=== PATIENT | male | born 1960 | race Caucasian/White ===

== ENCOUNTER 2019-03-11 11:23 | Inpatient (IN) | payer MEDICARE, OTHER ==
[~2019-03-11] VITALS: Ht 162.6 cm; Wt 200.0 kg
[2019-03-11] MEDS ORDERED: CEFEPIME 2GM/50 ML (PMX) 50 ML IVPB STA (11:34)
[2019-03-11] MEDS ORDERED: IPRATROPIUM (NEB) 0.5 MG/2.5 ML AMP INH STA (11:34)
[2019-03-11] MEDS ORDERED: ALBUTEROL 0.5% (NEB) 2.5 MG/0.5 ML AMP INH STA (11:34)
[2019-03-11] MEDS ORDERED: VANCOMYCIN 1 GM (PMX) 250 ML IVPB ONE (12:00)
[2019-03-11] MEDS ORDERED: FUROSEMIDE 40 MG INJ IV ONE (13:00)
--- NOTE | 2019-03-11 13:06 | ERD ---
ER Documentation Chief Complaint Chief Complaint MACKENZIE FROM [facility] D/T LOW SPO2 HPI This is a 58-year-old male that presents to the emergency department brought in by EMS from [facility]. The patient is a DO NOT RESUSCITATE with comfort measures only. The patient's pulse oximetry was low just prior to arrival and therefore 911 was called. When EMS arrived they stated that the patient appeared to be in severe respiratory distress and was desaturating to roughly 85%. They placed the patient on a nonrebreather with improvement of his saturation to 99%. The patient presents with a pulsed form that indicates comfort focused treatment which includes oxygen and suctioning and manual treatment of airway obstruction with no intubation. The patient has a history of chronic obstructive pulmonary disease rheumatoid arthritis and morbid obesity. It is unknown if the patient had any recent hospitalizations. He is also an insulin-dependent diabetic. No further history is available at this time. ROS All systems reviewed and are negative except as per history of present illness. Physical Exam Vitals Vital Signs Date Temp Pulse Resp B/P (MAP) Pulse Ox O2 O2 Flow FiO2 Time Delivery Rate 03/11/19 98 98 35 11:56 03/11/19 99.1 97 26 147/89 97 11:32 (108) Physical Exam Constitutional:Well-developed. Patient was in severe respiratory distress. HEENT:Normocephalic. Atraumatic.Pupils were 3 mm equal round reactive to light. Moist mucous membranes.No tonsillar exudates. Neck: No nuchal rigidity. No lymphadenopathy. No posterior cervical spine tenderness or step-offs. Respiratory: Patient using accessory muscles of respiration. Decreased breath sounds in the left lower lung base. Wheezing bilaterally. Cardiovascular: Regular rate regular rhythm.No murmurs. No rubs were appreciated.S1, S2 normal. Distal pulses are palpable 2+ bilaterally. GI: Abdomen was obese so exam was limited due to body habitus. Nontender. Non Distended. No pulsatile abdominal masses or bruits. No rebound. No guarding. Bowel sounds were present and normal. Muscle skeletal: Patient does not move bilateral lower extremities against gravity. Does not follow verbal commands of muscular testing was unable to be obtained. Skin: No petechia, no purpura. No lesions on the palms or the soles of the feet. No maculopapular rash. NEURO: Patient with open eyes in response to pain. Mumbled and calm principal sounds . gait not observed. Patient did not follow verbal command. Result Diagram: 03/11/19 1148 Results 24 hrs Laboratory Tests Test 03/11/19 11:34 03/11/19 11:47 03/11/19 11:48 03/11/19 11:57 Blood Gas Blood arterial Specimen Source Arterial Blood 03/11/2019 11:38:50 Date Drawn AM Arterial Blood pH 7.187 (Temp corrected) Arterial Blood 87.8 mmhg pCO2 (Temp correct) Arterial Blood 128.0 mmHG pO2 (Temp corrected) Arterial Blood 32.6 mmol/L HCO3 Arterial Blood 1.5 mmol/L Base Excess Arterial Blood 98.2 mmHG Oxygen Saturation Lambert Test ACCEPTAB Arterial Blood Right Radial Gas Puncture Site Arterial 1.6 % Blood Carboxyhemo globin Arterial Blood 0.2 % Methemoglobin Blood Gas A-a O2 357.6 mmHg Differential Oxyhemoglobin 96.4 % Percent Blood Gas 37.0 C Temperature Blood Gas MASK - SIMPLE Modality FiO2 81.0 % Blood Gas DR. SALGADO Critical Value Read Back Blood Gas C.M. Notified Whom Blood Gas 03/11/2019 11:49:44 Notified Time AM Prothrombin Time 13.2 Sec Prothrombin Time 1.0 Ratio INR International 0.99 Normalized Ratio Activated 26.9 Sec Partial Thrombopl ast Time White Blood Count 10.6 10^3/ul Red Blood Count 4.36 10^6/ul Hemoglobin 12.3 g/dl Hematocrit 44.1 % Mean Corpuscular 101.1 fl Volume Mean Corpuscular 28.2 pg Hemoglobin Mean Corpuscular 27.9 g/dl Hemoglobin Concen t Red Cell 17.8 % Distribution Width Platelet Count 167 10^3/UL Mean Platelet 12.1 fl Volume Immature 1.900 % Granulocytes % Neutrophils % 83.0 % Lymphocytes % 7.4 % Monocytes % 6.7 % Eosinophils % 0.4 % Basophils % 0.6 % Nucleated Red 0.2 /100WBC Blood Cells % Immature 0.200 10^3/ul Granulocytes # Neutrophils # 8.8 10^3/ul Lymphocytes # 0.8 10^3/ul Monocytes # 0.7 10^3/ul Eosinophils # 0.0 10^3/ul Basophils # 0.1 10^3/ul Nucleated Red 0.0 10^3/ul Blood Cells # POC Venous 1.4 mmol/L Lactate Current Medications Medications Dose Sig/Karyn Start Time Status Last (Trade) Ordered Route PRN Stop Time Admin Dose Reason Admin Cefepime HCl 50 ml @ ONCE STAT 03/11/19 DC 03/11/19 100 mls/hr IVPB 11:34 03/11/19 12:11 12:03 Vancomycin 250 ml @ ONCE ONCE 03/11/19 HCl 125 mls/hr IVPB 12:00 03/11/19 13:59 Albuterol 10 mg ONCE STAT 03/11/19 DC 03/11/19 (Proventil INH 11:34 03/11/19 12:24 0.5% (Neb)) 11:37 Ipratropium 1 mg ONCE STAT 03/11/19 DC 03/11/19 [place] INH 11:34 03/11/19 12:24 (Atrovent 11:37 0.02% (Neb)) Procedures/MDM The patient presented to the emergency department with dyspnea. My differential diagnosis included but was not limited to upper airway obstruction, CHF, pulmonary embolism, cardiac ischemia, pneumonia, pneumothorax, anemia, drug overdose, pulmonary edema, COPD or asthma. The patient was in severe respiratory distress. Arterial blood gas was immediately obtained and the patient had CO2 narcosis with respiratory acidosis. pH was 7.187. PCO2 was 87.8. The patient is comfort measures only but at this time he was placed on noninvasive mechanical ventilation. He also met Sirs criteria however lactic acid was within normal limits. Chest radiograph was ordered and reviewed by myself and the radiologist and indicate the following: Markedly low lung volumes with excessive rotation to the left, decreasing diagnostic quality. Extensive interstitial opacities bilaterally with greater confluence in the basilar lungs. Findings can be secondary to severe pulmonary edema or airway inf lammation. Retrocardiac opacity and blunting of the left costophrenic angle, consistent with a combination of left pleural effusion and atelectasis / consolidation. Blood cultures and urine cultures were obtained. The patient was started on vancomycin and cefepime as initially was treated for suspected unclear etiology possible sepsis. Again however the lactic acid was normal the patient was not septic. 12 Lead EKG tracing ordered and reviewed by myself showed: Normal sinus rhythm of 73 bpm and no arrhythmia. PVCs. CT interval normal. QRS duration normal. No ST segment elevation No ST segment depression. No changes consistent with acute ischemia. The patient's potassium was elevated 6.5. He received an amp of bicarb calcium card and also had received albuterol. The patient was also given Lasix. Also administer 125 mg of Solu-Medrol for suspected overlying COPD exacerbation. He will be admitted to the hospitalist. Given that the patient is comfort measures only he will be going to the telemetry service. Critical Care: Time: 75 minutes Treatments/Evaluations: Close monitoring and treatment of unstable vital signs, cardiorespiratory, and neurologic status, while maintaining tight balance of fluid, respiratory, and cardiac interventions. Time does not include performing any of the above billable procedures. Departure Diagnosis: Primary Impression: COPD (chronic obstructive pulmonary disease) COPD type: chronic bronchitis Chronic bronchitis type: mucopurulent Qualified Codes: J41.1 - Mucopurulent chronic bronchitis Additional Impressions: CO2 narcosis Respiratory distress Condition: Serious JOCELYN SALGADO MD Mar 11, 2019 12:50
[2019-03-11] MEDS ORDERED: DOCU-144 PO (13:21)
[2019-03-11] MEDS ORDERED: ACET-141 PO (13:21)
[2019-03-11] MEDS ORDERED: GABA300C16 PO (13:22)
[2019-03-11] MEDS ORDERED: LACTINEX PO (13:22)
[2019-03-11] MEDS ORDERED: LANT3I SC (13:26)
[2019-03-11] MEDS ORDERED: FURO20TA3 PO (13:26)
[2019-03-11] MEDS ORDERED: MECL-77 PO (13:26)
[2019-03-11] MEDS ORDERED: METF100010 PO (13:27)
[2019-03-11] MEDS ORDERED: HYDR-4012 PO (13:28)
[2019-03-11] MEDS ORDERED: NYST15CR28 TOP ×2 (13:30→13:43)
[2019-03-11] MEDS ORDERED: ONDANSETRON 4 MG INJ IV PRN (13:30)
[2019-03-11] MEDS ORDERED: ACETAMINOPHEN 325 MG TAB PO PRN (13:30)
[2019-03-11] MEDS ORDERED: METHYLPREDNISOLONE 125 MG INJ IV ONE (13:30)
[2019-03-11] MEDS ORDERED: INSU500I SQ (13:34)
[2019-03-11] MEDS ORDERED: BALS60OI TOP ×2 (13:38→13:39)
[2019-03-11] MEDS ORDERED: DULA1.5P SQ (13:39)
[2019-03-11] MEDS ORDERED: SUMA50TA3 PO (13:40)
[2019-03-11] MEDS ORDERED: SENN-120 PO (13:41)
[2019-03-11] MEDS ORDERED: POTA10TA37 PO (13:42)
[2019-03-11] MEDS ORDERED: TEMA7.5C2 PO (13:42)
--- NOTE | 2019-03-11 14:09 | HP ---
Date/Time of Note Date/Time of Note DATE: 03/11/19 TIME: 14:09 Assessment/Plan VTE Prophylaxis Pharmacological prophylaxis: LMWH Lines/Catheters IV Catheter Type (from [facility]): Saline Lock Assessment/Plan Hospital Course 58-year-old male with comorbidities including hypertension, obesity hypoventilation syndrome, diabetes mellitus type 2, and COPD who was brought in from a shelter facility because of hypoxia, who was found to have evidence of underlying respiratory failure and acute encephalopathy, who will be admitted to inpatient setting for further treatment and evaluation. 1. Acute on chronic respiratory failure. Hypoxic and hypercapnic. Continue noninvasive positive pressure ventilation. Keep the patient n.p.o. Obtain a pulmonology evaluation. Continue the patient on inhaled bronchodilators and inhaled anticholinergics. 2. Acute encephalopathy. Most probably toxic metabolic in origin. Continue noninvasive positive pressure ventilation for treatment of underlying CO2 narcosis. 3. Suspect healthcare associated pneumonia. Continue the patient on vancomycin plus cefepime. Aspiration precautions. 4. Hyperkalemia. Most probably secondary to underlying acidosis. Status post treatment with beta 2 agonist and sodium bicarbonate. 5. COPD. Continue inhaled bronchodilators and anticholinergics. Continue steroids. 6. Diabetes mellitus. Obtain hemoglobin A1c to evaluate the blood glucose control over the past few weeks. Start the patient on sliding scale insulin. 7. Hypertension. Continue the patient on PRN antihypertensives for any high blood pressure readings. 8. Normocytic anemia. Most probably anemia chronic disease. Monitor H&H closely. Plan: The patient will be admitted to inpatient medical surgical floor. The patient will be n.p.o. The patient will be started on DVT prophylaxis and gastrointestinal prophylaxis. The patient will remain a DNR (POLST indicates DNR). Activities will be bedrest. The rest of the patient's management will be based on the clinical course, inputs from consultants, and the results of diagnostic studies. Based on the patient's clinical presentation, he most probably requires at least 2 midnights' stay for further management and evaluation of his clinical presentation. The patient was seen in collaboration with Dr. Tan. Result Diagram: 03/11/19 1148 03/11/19 1147 Results 24hrs Laboratory Tests Test 03/11/19 11:34 03/11/19 11:47 03/11/19 11:48 03/11/19 11:57 Blood Gas Specimen Blood arterial Source Arterial Blood 03/11/2019 11:38:50 Date Drawn AM Arterial Blood pH 7.187 *L (Temp corrected) Arterial Blood 87.8 *H pCO2 (Temp correct) Arterial Blood pO2 128.0 H (Temp corrected) Arterial Blood 32.6 H HCO3 Arterial Blood 1.5 Base Excess Arterial Blood 98.2 H Oxygen Saturation Lambert Test ACCEPTAB Arterial Blood Gas Right Radial Puncture Site Arterial 1.6 Blood Carboxyhemog lobin Arterial Blood 0.2 Methemoglobin Blood Gas A-a O2 357.6 H Differential Oxyhemoglobin 96.4 Percent Blood Gas 37.0 Temperature Blood Gas Modality MASK - SIMPLE FiO2 81.[address] SALGADO Value Read Back Blood Gas Notified C.M. Whom Blood Gas Notified 03/11/2019 11:49:44 Time AM Prothrombin Time 13.2 Prothrombin Time 1.0 Ratio INR International 0.99 Normalized Ratio Activated 26.[address] Time Sodium Level 137 Potassium Level 6.5 *H Chloride Level 96 L Carbon Dioxide 37 H Level Anion Gap 4 L Blood Urea 18 Nitrogen Creatinine 0.78 Est Glomerular > 60 Filtrat Rate mL/min Glucose Level 182 Calcium Level 8.1 L Total Bilirubin 0.7 Direct Bilirubin 0.00 Indirect Bilirubin 0.7 Aspartate Amino 39 Transf (AST/SGOT) Alanine 22 Aminotransferase ( ALT/SGPT) Alkaline 171 H Phosphatase Troponin I 0.030 B-Type Natriuretic 1520 H Peptide Total Protein 8.4 H Albumin 3.7 Globulin 4.70 H Albumin/Globulin 0.78 Ratio Amylase Level 94 Lipase 92 White Blood Count 10.6 Red Blood Count 4.36 L Hemoglobin 12.3 L Hematocrit 44.1 Mean Corpuscular 101.1 H Volume Mean Corpuscular 28.2 L Hemoglobin Mean Corpuscular 27.9 L Hemoglobin Concent Red Cell 17.8 H Distribution Width Platelet Count 167 Mean Platelet 12.1 H Volume Immature 1.900 H Granulocytes % Neutrophils % 83.0 H Lymphocytes % 7.4 L Monocytes % 6.7 Eosinophils % 0.4 Basophils % 0.6 Nucleated Red 0.2 H Blood Cells % Immature 0.200 H Granulocytes # Neutrophils # 8.8 H Lymphocytes # 0.8 Monocytes # 0.7 Eosinophils # 0.0 Basophils # 0.1 Nucleated Red 0.0 Blood Cells # POC Venous Lactate 1.4 Test 03/11/19 13:30 Blood Gas Specimen Blood arterial Source Arterial Blood 03/11/2019 1:39:42 Date Drawn PM Arterial Blood pH 7.264 *L (Temp corrected) Arterial Blood 75.3 H pCO2 (Temp correct) Arterial Blood pO2 74.7 L (Temp corrected) Arterial Blood 33.3 H HCO3 Arterial Blood 4.1 H Base Excess Arterial Blood 93.7 L Oxygen Saturation Lambert Test ACCEPTAB Arterial Blood Gas Right Radial Puncture Site Arterial 1.1 Blood Carboxyhemog lobin Arterial Blood 0.1 Methemoglobin Blood Gas A-a O2 87.3 H Differential Oxyhemoglobin 92.6 L Percent Blood Gas 37.0 Temperature Blood Gas 14.0 Respiration Rate Blood Gas Actual 20 Respiration Rate Blood Gas Modality MASK - BIPAP FiO2 35.0 Blood Gas Pressure 12 Support Blood Gas 20/8 IPAP/EPAP Ratio Blood Gas Critical DR. SALGADO Value Read Back Blood Gas Notified Yovana Whom Blood Gas Notified 03/11/2019 1:47:24 Time PM HPI/ROS Admit Date/Time Admit Date/Time Hx of Present Illness Reason for hospitalization: Hypoxia. This is a 58-year-old male who is a [facility] resident with comorbidities including morbid obesity (BMI 67 kg/m), obesity hypoventilation syndrome, diabetes mellitus type 2, COPD, and hypertension, who was brought in from a shelter facility because of hypoxia. The patient was very lethargic u george initial examination and was unable to obtain details from the patient. Details of HPI were obtained from my talking to the ER personnel and review of the patient's medical records. In the emergency room, the patient was noticed to have hyperkalemia, potassium was 6.5. Patient was noticed to have underlying hypoxic and hypercapnic respiratory failure with underlying respiratory acidosis. The patient was started on BiPAP therapy with improvement in the pH to 7.264. The patient's chest x-ray was showing markedly low lung volumes with excessive rotation to the left with extensive interstitial opacities bilaterally with the greater confluence in the basilar lungs along with a retrocardiac opacity and blunting of the left costophrenic angle, consistent with a combination of left pleural effusion and atelectasis/consolidation. The patient's lactic acid level was within normal limits. The patient was treated with IV Lasix, inhaled bronchodilators, and a single dose of vancomycin with cefepime. ROS Subjective hx not possible: pt non-verbal, pt critical PMH/Family/Social Past Medical History 1. COPD. 2. Hypertension. 3. Diabetes mellitus type 2. 4. Obesity hypoventilation syndrome. 5. Morbid obesity, BMI more than 67 kg/m. 6. Medications Current Medications Ondansetron HCl (Zofran Inj) 4 mg BRIDGE ORDER PRN IV NAUSEA/VOMITING; Start 03/11/19 at 13:30; Stop 03/12/19 at 13:29 Acetaminophen (Tylenol Tab) 650 mg ER BRIDGE PRN PO .MILD PAIN 1-3 OR TEMP; Start 03/11/19 at 13:30; Stop 03/12/19 at 13:29 Coded Allergies: No Known Allergy (Unverified , 03/11/19) Past Surgical History Unknown. Social History The patient is a [facility] resident. Smoking Status: Unknown if ever smoked Exam/Review of Systems Vital Signs Vitals Vital Signs Date Temp Pulse Resp B/P (MAP) Pulse Ox O2 O2 Flow FiO2 Time Delivery Rate 03/11/19 82 94 35 13:34 03/11/19 Simple 11:35 Mask 03/11/19 99.1 26 147/89 11:32 (108) Exam Exam General: Morbidly obese, 58 year-old male lying in bed in no apparent distress, somnolent. HEENT: Normocephalic, atraumatic. Eyes: Anicteric sclerae, conjunctivae clear. ENT: Nasal septum is midline midline, oral mucosa dry. Neck: Short and obese neck with increased neck circumference. Respiratory: Bilaterally diminished breath sounds. On noninvasive positive pressure ventilation. Cardiovascular: S1, S2 heard. No murmurs or gallops. Abdomen: Soft, nontender, and nondistended. Bowel sounds positive in all 4 quadrants. Genitourinary: Deferred. Extremities: No cyanosis, no clubbing. Bilateral lower extremity edema. Left lower extremity erythema with warmth to touch. Neurologic: Patient is stuporous. Opens his eyes with sternal rub. Additional Comments CXR IMPRESSION: Markedly low lung volumes with excessive rotation to the left, decreasing diagnostic quality. Extensive interstitial opacities bilaterally with greater confluence in the basilar lungs. Findings can be secondary to severe pulmonary edema or airway inflammation. Retrocardiac opacity and blunting of the left costophrenic angle, consistent with a combination of left pleural effusion and atelectasis / consolidation. JESUSITA TINSLEY NP Mar 11, 2019 14:09
[2019-03-11] MEDS ORDERED: NACL 0.9% 3 ML SYG IV SCH (15:00)
[2019-03-11] MEDS ORDERED: VANCOMYCIN IV PER PHARMACY XX SCH (15:00)
[2019-03-11] MEDS ORDERED: INSULIN ASPART [NOVOLOG] 3 ML PEN SC SCH (15:00)
[2019-03-11] MEDS ORDERED: hydrALAzine 20 MG INJ IV PRN (15:30)
[2019-03-11] MEDS ORDERED: DEXTROSE 50% 50 ML SYRINGE IV PRN ×2 (16:30)
[2019-03-11] MEDS ORDERED: VANCOMYCIN 1 GM in 250 ML IVPB ONE (16:30)
[2019-03-11] MEDS ORDERED: GLUCOSE GEL 15 GRAM TUBE BUCCAL PRN (16:30)
[2019-03-11] MEDS ORDERED: GLUCAGON 1 MG INJ IM PRN (16:30)
[2019-03-11] MEDS ORDERED: GLUCOSE GEL 15 GRAM TUBE PO PRN ×2 (16:30)
[2019-03-11] MEDS: ALBUTEROL/IPRATROPIUM (NEB) 3 ML AMP HHN SCH ×2 (17:35→20:16)
[2019-03-11] MEDS: VANCOMYCIN HCL 2 GM in SOD CHLORIDE 0.9% 500 ML IVPB SCH (20:00)
[2019-03-11 21:01] VITALS: PULSE 81
[2019-03-11 21:04] VITALS: Ht 162.6 cm; Wt 200.0 kg
[2019-03-11 21:30] VITALS: BP 126/64; PULSE 85; RESP 22
[2019-03-11] MEDS: Insulin NOVOLOG SS MILD Algorithm (NPO/TPN/ENTERAL FEEDS) SC SCH ×2 (21:32→21:50)
[2019-03-11] MEDS: METHYLPREDNISOLONE 40 MG INJ IV SCH (21:59)
[2019-03-11] MEDS ORDERED: ZOLPIDEM 5 MG TAB PO PRN (22:00)
[2019-03-11] MEDS ORDERED: FUROSEMIDE 40 MG INJ IV SCH (22:00)
[2019-03-11] MEDS: HYDROCODONE/APAP (7.5/325) TAB PO PRN (22:00)
[2019-03-11 22:52] VITALS: PULSE 86
[2019-03-12] VITALS (13 sets, daily range): BP systolic 101–137; BP diastolic 51–75; PULSE 71–101; RESP 17–20
[2019-03-12] MEDS: Insulin NOVOLOG SS MILD Algorithm (NPO/TPN/ENTERAL FEEDS) SC SCH ×6 (00:15→21:18)
[2019-03-12] MEDS: CEFEPIME 2GM/50 ML (PMX) 50 ML IVPB SCH ×3 (00:15→20:51)
[2019-03-12] MEDS: ALBUTEROL/IPRATROPIUM (NEB) 3 ML AMP HHN SCH ×6 (01:30→20:06)
[2019-03-12] MEDS: VANCOMYCIN HCL 2 GM in SOD CHLORIDE 0.9% 500 ML IVPB SCH (03:51)
[2019-03-12] MEDS: HYDROCODONE/APAP (7.5/325) TAB PO PRN ×3 (05:31→23:30)
[2019-03-12] MEDS: METHYLPREDNISOLONE 40 MG INJ IV SCH (10:16)
[2019-03-12] MEDS: ENOXAPARIN 40 MG/0.4 ML SYG SC SCH (10:23)
--- NOTE | 2019-03-12 11:06 | CONS ---
Assessment/Plan Assessment/Plan Assessment/Plan (Daily) Chest x-ray showing cardiomegaly with pulmonary edema. Initial ABG showed severe uncompensated hypercapnic respiratory failure with marked improvement after patient was put on BiPAP. Assessment and recommendations; 1. Patient admitted with CHF exacerbation as well as acute on chronic hypercapnic respiratory failure with significant interval improvement on BiPAP. 2. Based upon chest x-ray and clinical presentation, findings are not consistent with pneumonia. Patient also has a low procalcitonin level. 3. Acute and cephalopathy from hypercapnia with interval improvement. 4. DNR status. 5. Morbid obesity. 6. History of hypertension and diabetes. Discontinue antibiotics. Start Lasix 40 mg IV every 12 hours at least for few doses. Continue BiPAP. Obtain follow-up chest x-ray in 24 hours. Consultation Date/Type/Reason Admit Date/Time Date of Consultation: Mar 12, 2019 Type of Consult Pulmonary Pulmonary consult requested for evaluation of hypoxemic and hypercapnic respiratory failure. Patient is a 58-year-old gentleman who is a resident of [facility] transferred over to the hospital because of altered mental status. Upon evaluation patient was found to be severely hypercapnic and a chest x-ray was done which is showing pulmonary edema. Patient is a DNR status and therefore was not intubated and was put on BiPAP with significant improvement in hypercapnia as well as improvement in mental status. By the time I saw him in the room, patient was completely awake and alert. I did not appear to be in any distress. Past medical history; 1. Morbid obesity. 2. Likely underlying chronic type II respiratory failure. 3. Diabetes and hypertension. 4. Likely underlying sleep apnea. Medications; reviewed. Allergies; none. Family history; noncontributory. Occupational history; patient is on disability. Review of systems; denies any headache, chest pain, shortness of breath is improving. Denies any coughing, wheezing, sputum production. Any abdominal pain, nausea vomiting. Any dysphagia. Complains of chronic orthopnea. General exam; middle-aged male, morbidly obese, awake and alert. Currently in no distress. Date/Time of Note DATE: 03/12/19 TIME: 11:02 Past Medical History Home Meds Reported Medications Nystatin* (Nystatin*) 15 Gm Cr, 1 APPLIC TOP BID, #1 TUB APPY TO PERINEAL AREA 03/11/19 Potassium Chloride* (K-Dur*) 10 Meq Tab.prt.sr, 10 MEQ PO DAILY, TAB 03/11/19 Temazepam* (Restoril*) 7.5 Mg Capsule, 7.5 MG PO HS PRN for INSOMNIA, CAP 03/11/19 Sennosides* (Senna Lax*) 8.6 Mg Tablet, 2 TAB PO DAILY PRN for CONSTIPATION, TAB 03/11/19 Sumatriptan Succinate* (Sumatriptan Succinate*) 50 Mg Tablet, 50 MG PO BID PRN for SEVERE MIGRAINE, TAB May repeat after 2 hours if needed; MAX 200 mg/24 hours 03/11/19 Dulaglutide (Trulicity) 1.5 Mg/0.5 Ml Pen.injctr, 1.5 MG SQ EVERY Friday03/11/19 Balsam Ana Lilia/[place] Bloom[place] Oil (Venelex Ointment) 60 Gm Oint..gm., 1 APPLIC TOP DAILY PRN for PRN, #1 TUB APPLY TO RIGHT KNEE 03/11/19 Balsam Ana Lilia/[place]urel Bloomery Oil (Venelex Ointment) 60 Gm Oint..gm., 1 APPLIC TOP DAILY PRN for PRN, #1 TUB APPLY TO LOWER LEG FOR DRY SCAB 03/11/19 Insulin Regular, Human (Humulin R U-500 Kwikpen) 500 Unit/1 Ml Insuln.pen, 0 SQ AC B 71-159 = 0 UNITS 160-200 = 2 UNITS 201-250 = 4 UNITS 251-300 = 8 UNITS 301-350 =16 UNITS 351-400 =20 UNITS OVER 400 GIVE 22 UNITS AND CALL MD CALL MD IF UNDER 70 03/11/19 Nystatin* (Nystatin*) 15 Gm Cr, 1 APPLIC TOP BID, #1 TUB APPLY TO ABDOMINAL FOLDS TOPICALLY 03/11/19 Hydrocodone/Acetaminophen ([place] 7.5-325 Tablet) 1 Each Tablet, 1 EACH PO Q6 PRN for PAIN, TAB STOP 03-20-03/11/19 Metformin Hcl* (Metformin Hcl*) 1,000 Mg Tablet, 1000 MG PO WITH BREAKFAST DINNE, #60 TAB 03/11/19 Meclizine Hcl* (Meclizine Hcl*) 25 Mg Tablet, 25 MG PO Q8H PRN for DIZZINESS, TAB 03/11/19 Furosemide* (Furosemide*) 20 Mg Tablet, 20 MG PO DAILY, #60 TAB 03/11/19 Insulin Glargine* (Lantus*) 100 Unit/Ml Soln, 35 UNIT SC BID, #1 VIAL 03/11/19 Lactobacillus Acidophilus* (Lactinex*) 1 Tab Chew, 1 TAB PO BID, TAB 03/11/19 Gabapentin* (Gabapentin*) 300 Mg Capsule, 300 MG PO QID, #60 CAP 03/11/19 Docusate Sodium* (Colace*) 100 Mg Capsule, 100 MG PO DAILY PRN for CONSTIPATION, #30 CAP 03/11/19 Acetaminophen* (Acetaminophen*) 500 MG Extra Strength Tablet, 500 MG PO Q4H PRN for PAIN AND OR ELEVATED TEMP, TAB MODERATE MIGRAINE 03/11/19 Medications Current Medications IV Flush (NS 3 ml) 3 ml PER PROTOCOL IV ; Start 03/11/19 at 15:00 Enoxaparin Sodium (Lovenox) 40 mg DAILY SC Last administered on 03/12/19at 10:23; Admin Dose 40 MG; Start 03/12/19 at 09:00 Albuterol/ Ipratropium (Duoneb) 3 ml Q4H RESP THERAPY HHN Last administered on 03/12/19at 08:02; Admin Dose 3 ML; Start 03/11/19 at 17:00 Cefepime HCl 50 ml @ 100 mls/hr Q12 IVPB Last administered on 03/12/19at 10:16; Admin Dose 100 MLS/HR; Start 03/11/19 at 21:00 Vancomycin HCl (Vanco Iv Per Pharmacy) VANCOMYCIN PER PHARMACY PER PROTOCOL XX ; Start 03/11/19 at 15:00 Methylprednisolone Sodium Succinate (Solu-Medrol) 40 mg Q12 IV Last administered on 03/12/19at 10:16; Admin Dose 40 MG; Start 03/11/19 at 21:00 Hydralazine HCl (Apresoline) 10 mg Q6H PRN IV SBP>160; Start 03/11/19 at 15:30 Miscellaneous Information 1 ea NOTE XX ; Start 03/11/19 at 16:30 Glucose (Glutose) 15 gm Q15M PRN PO DECREASED GLUCOSE; Start 03/11/19 at 16:30 Glucose (Glutose) 22.5 gm Q15M PRN PO DECREASED GLUCOSE; Start 03/11/19 at 16:30 Dextrose (D50w Syringe) 25 ml Q15M PRN IV DECREASED GLUCOSE; Start 03/11/19 at 16:30 Dextrose (D50w Syringe) 50 ml Q15M PRN IV DECREASED GLUCOSE; Start 03/11/19 at 16:30 Glucagon (Glucagen) 1 mg Q15M PRN IM DECREASED GLUCOSE; Start 03/11/19 at 16:30 Glucose (Glutose) 15 gm Q15M PRN BUCCAL DECREASED GLUCOSE; Start 03/11/19 at 16:30 Insulin Aspart (Novolog Insulin Pen) (Adult SC Insulin - Mild Algorithm)... Q4H SC ; Start 03/11/19 at 16:30 Vancomycin HCl 2 gm/Sodium Chloride 500 ml @ 125 mls/hr Q8H IVPB Last administered on 03/12/19at 03:51; Admin Dose 125 MLS/HR; Start 03/11/19 at 20:00 Acetaminophen/ Hydrocodone Bitart ([place] (7.5-325)) 1 tab Q8 PRN PO PAIN Last administered on 03/12/19at 05:31; Admin Dose 1 TAB; Start 03/11/19 at 22:00 Zolpidem Tartrate (Ambien) 5 mg HS PRN PO INSOMNIA Last administered on 03/11/19at 22:00; Admin Dose 5 MG; Start 03/11/19 at 22:00 Allergies: Coded Allergies: No Known Allergy (Unverified , 03/11/19) Social History Smoking Status: Former smoker Exam/Review of Systems Exam Vitals Vital Signs Date Temp Pulse Resp B/P (MAP) Pulse Ox O2 O2 Flow FiO2 Time Delivery Rate 03/12/19 4.0 08:03 03/12/19 82 20 96 Nasal 08:03 Cannula 03/12/19 98.6 124/57 07:40 (79) 03/12/19 50 05:13 Exam H EENT exam; supple neck, JVD difficult to see because of short neck. Patient has fair dentition. No neck masses. Chest exam; diminished breath sounds throughout. S1-S2 audible, no murmurs. Regular rhythm. Abdomen exam; soft, grossly protuberant. Organomegaly difficult to assess. Bowel sounds audible. Abdomen is nontender. Extremity exam; chronic appearing mild erythema involving lower extremities. No edema. GUIDANCE COUNSELOR exam; no focal deficit. Results Result Diagram: 03/12/19 0617 03/12/19 0617 Results 24hrs Laboratory Tests Test 03/11/19 11:34 03/11/19 11:47 03/11/19 11:48 03/11/19 11:52 Blood Gas Blood arterial Specimen Source Arterial Blood 03/11/2019 11:38: Date Drawn 50 AM Arterial Blood 7.187 *L pH (Temp corrected ) Arterial Blood 87.8 *H pCO2 (Temp correct) Arterial Blood 128.0 H pO2 (Temp corrected ) Arterial Blood 32.6 H HCO3 Arterial Blood 1.5 Base Excess Arterial Blood 98.2 H Oxygen Saturati on Lambert Test ACCEPTAB Arterial Blood Right Radial Gas Puncture Site Arterial 1.6 Blood Carboxyhe moglobin Arterial Blood 0.2 Methemoglobin Blood Gas A-a 357.6 H O2 Differential Oxyhemoglobin 96.4 Percent Blood Gas 37.0 Temperature Blood Gas MASK - SIMPLE Modality FiO2 81.[address] SALGADO Critical Value Read Back Blood Gas C.M. Notified Whom Blood Gas 03/11/2019 11:49: Notified Time 44 AM Prothrombin 13.2 Time Prothrombin 1.0 Time Ratio INR 0.99 International Normalized Rati o Activated 26.9 Partial Thrombo plast Time Sodium Level 137 Potassium Level 6.5 *H Chloride Level 96 L Carbon Dioxide 37 H Level Anion Gap 4 L Blood Urea 18 Nitrogen Creatinine 0.78 Est Glomerular > 60 Filtrat Rate mL/min Glucose Level 182 Calcium Level 8.1 L Total Bilirubin 0.7 Direct 0.00 Bilirubin Indirect 0.7 Bilirubin Aspartate Amino 39 Transf (AST/SGO T) Alanine 22 Aminotransferas e (ALT/SGPT) Alkaline 171 H Phosphatase Troponin I 0.030 B-Type 1520 H 1440 H Natriuretic Peptide Total Protein 8.4 H Albumin 3.7 Globulin 4.70 H Albumin/Globuli 0.78 n Ratio Amylase Level 94 Lipase 92 White Blood 10.6 Count Red Blood Count 4.36 L Hemoglobin 12.3 L Hematocrit 44.1 Mean 101.1 H Corpuscular Volume Mean 28.2 L Corpuscular Hemoglobin Mean 27.9 L Corpuscular Hemoglobin Conc ent Red Cell 17.8 H Distribution Width Platelet Count 167 Mean Platelet 12.1 H Volume Immature 1.900 H Granulocytes % Neutrophils % 83.0 H Lymphocytes % 7.4 L Monocytes % 6.7 Eosinophils % 0.4 Basophils % 0.6 Nucleated Red 0.2 H Blood Cells % Immature 0.200 H Granulocytes # Neutrophils # 8.8 H Lymphocytes # 0.8 Monocytes # 0.7 Eosinophils # 0.0 Basophils # 0.1 Nucleated Red 0.0 Blood Cells # Magnesium Level 2.1 Triglycerides 121 Level Cholesterol 155 Level LDL 86 Cholesterol, Calculated HDL Cholesterol 45 Cholesterol/HDL 3.4 Ratio Procalcitonin 0.17 H Thyroid 2.050 Stimulating Hormone (TSH) Free Thyroxine 0.73 Test 03/11/19 11:57 03/11/19 13:30 03/11/19 14:20 03/11/19 16:00 POC Venous 1.4 Lactate Blood Gas Blood Blood Specimen arterial arterial Source Arterial Blood 03/11/2019 1:39: 03/11/2019 5:24: Date Drawn 42 PM 04 PM Arterial Blood 7.264 *L 7.368 pH (Temp corrected ) Arterial Blood 75.3 H 63.5 H pCO2 (Temp correct) Arterial Blood 74.7 L 73.8 L pO2 (Temp corrected ) Arterial Blood 33.3 H 35.7 H HCO3 Arterial Blood 4.1 H 8.3 H Base Excess Arterial Blood 93.7 L 94.7 L Oxygen Saturati on Lambert Test ACCEPTAB ACCEPTAB Arterial Blood Right Radial Right Radial Gas Puncture Site Arterial 1.1 1.0 Blood Carboxyhe moglobin Arterial Blood 0.1 0.2 Methemoglobin Blood Gas A-a 87.3 H 65.5 H O2 Differential Oxyhemoglobin 92.6 L 93.6 Percent Blood Gas 37.0 37.0 Temperature Blood Gas 14.0 18.0 Respiration Rate Blood Gas 20 22 Actual Respiration Rat e Blood Gas MASK - BIPAP MASK - BIPAP Modality FiO2 35.0 30.0 Blood Gas 12 13 Pressure Support Blood Gas 20/8 18/5 IPAP/EPAP Ratio Blood Gas DR. SALGADO Critical Value Read Back Blood Gas Yovana Yen Notified Whom Blood Gas 03/11/2019 1:47: 03/11/2019 5:33: Notified Time 24 PM 52 PM Urine Color YELLOW Urine Clarity SLIGHTLY CLOUD Y A Urine pH 5.0 Urine Specific 1.020 [place] Urine Ketones NEGATIVE Urine Nitrite NEGATIVE Urine Bilirubin NEGATIVE Urine NEGATIVE Urobilinogen Urine Leukocyte 1+ H Esterase Urine 13 H Microscopic RBC Urine 23 H Microscopic WBC Urine Bacteria FEW A Urine NEGATIVE Hemoglobin Urine Glucose NEGATIVE Urine Total 2+ H Protein Test 03/11/19 16:19 03/11/19 21:31 03/11/19 21:59 03/12/19 00:13 Sodium Level 137 Potassium Level 5.6 H Chloride Level 95 L Carbon Dioxide 38 H Level Anion Gap 4 L Blood Urea 19 Nitrogen Creatinine 0.72 Est Glomerular > 60 Filtrat Rate mL/min Glucose Level 124 # Lactic Acid 1.7 1.5 Level Calcium Level 8.2 L Bedside Glucose 122 168 Test 03/12/19 03:52 03/12/19 05:00 03/12/19 06:17 03/12/19 07:54 Bedside Glucose 176 165 Blood Gas Blood Specimen arterial Source Arterial Blood 03/12/2019 5:40: Date Drawn 38 AM Arterial Blood 7.327 L pH (Temp corrected ) Arterial Blood 67.7 H pCO2 (Temp correct) Arterial Blood 83.7 pO2 (Temp corrected ) Arterial Blood 34.7 H HCO3 Arterial Blood 6.5 H Base Excess Arterial Blood 95.6 Oxygen Saturati on Lambert Test N/A Arterial Blood Left Radial Gas Puncture Site Arterial 1.0 Blood Carboxyhe moglobin Arterial Blood 0.3 Methemoglobin Blood Gas A-a 72.6 H O2 Differential Oxyhemoglobin 94.4 Percent Blood Gas 37.0 Temperature Blood Gas NASAL CANNULA Modality FiO2 33.0 Blood Gas MR Notified Whom Blood Gas 03/12/2019 5:47: Notified Time 15 AM White Blood 9.0 Count Red Blood Count 4.29 L Hemoglobin 12.0 L Hematocrit 42.0 Mean 97.9 Corpuscular Volume Mean 28.0 L Corpuscular Hemoglobin Mean 28.6 L Corpuscular Hemoglobin Conc ent Red Cell 18.2 H Distribution Width Platelet Count 145 Mean Platelet 12.7 H Volume Immature 0.400 Granulocytes % Neutrophils % 92.0 H Lymphocytes % 5.0 L Monocytes % 2.1 Eosinophils % 0.1 Basophils % 0.4 Nucleated Red 0.0 Blood Cells % Immature 0.040 H Granulocytes # Neutrophils # 8.2 H Lymphocytes # 0.5 L Monocytes # 0.2 L Eosinophils # 0.0 Basophils # 0.0 Nucleated Red 0.0 Blood Cells # Sodium Level 137 Potassium Level 5.9 H Chloride Level 97 Carbon Dioxide 36 H Level Anion Gap 4 L Blood Urea 18 Nitrogen Creatinine 0.62 Est Glomerular > 60 Filtrat Rate mL/min Glucose Level 192 Lactic Acid 2.0 Level Calcium Level 8.0 L Phosphorus 3.9 Level Magnesium Level 2.1 Total Bilirubin 1.1 Direct 0.00 Bilirubin Indirect 1.1 Bilirubin Aspartate Amino 33 Transf (AST/SGO T) Alanine 22 Aminotransferas e (ALT/SGPT) Alkaline 128 H Phosphatase Creatine Kinase 27 Creatine Kinase 1.4 Index Creatinine 0.37 Kinase MB (Mass) Troponin I 0.024 Total Protein 7.4 # Albumin 3.3 Globulin 4.10 H Albumin/Globuli 0.80 n Ratio Test 03/12/19 10:15 Bedside Glucose 140 Medications Medication Current Medications IV Flush (NS 3 ml) 3 ml PER PROTOCOL IV ; Start 03/11/19 at 15:00 Enoxaparin Sodium (Lovenox) 40 mg DAILY SC Last administered on 03/12/19at 10:23; Admin Dose 40 MG; Start 03/12/19 at 09:00 Albuterol/ Ipratropium (Duoneb) 3 ml Q4H RESP THERAPY HHN Last administered on 03/12/19at 08:02; Admin Dose 3 ML; Start 03/11/19 at 17:00 Cefepime HCl 50 ml @ 100 mls/hr Q12 IVPB Last administered on 03/12/19at 10:16; Admin Dose 100 MLS/HR; Start 03/11/19 at 21:00 Vancomycin HCl (Vanco Iv Per Pharmacy) VANCOMYCIN PER PHARMACY PER PROTOCOL XX ; Start 03/11/19 at 15:00 Methylprednisolone Sodium Succinate (Solu-Medrol) 40 mg Q12 IV Last administered on 03/12/19at 10:16; Admin Dose 40 MG; Start 03/11/19 at 21:00 Hydralazine HCl (Apresoline) 10 mg Q6H PRN IV SBP>160; Start 03/11/19 at 15:30 Miscellaneous Information 1 ea NOTE XX ; Start 03/11/19 at 16:30 Glucose (Glutose) 15 gm Q15M PRN PO DECREASED GLUCOSE; Start 03/11/19 at 16:30 Glucose (Glutose) 22.5 gm Q15M PRN PO DECREASED GLUCOSE; Start 03/11/19 at 16:30 Dextrose (D50w Syringe) 25 ml Q15M PRN IV DECREASED GLUCOSE; Start 03/11/19 at 16:30 Dextrose (D50w Syringe) 50 ml Q15M PRN IV DECREASED GLUCOSE; Start 03/11/19 at 16:30 Glucagon (Glucagen) 1 mg Q15M PRN IM DECREASED GLUCOSE; Start 03/11/19 at 16:30 Glucose (Glutose) 15 gm Q15M PRN BUCCAL DECREASED GLUCOSE; Start 03/11/19 at 16:30 Insulin Aspart (Novolog Insulin Pen) (Adult SC Insulin - Mild Algorithm)... Q4H SC ; Start 03/11/19 at 16:30 Vancomycin HCl 2 gm/Sodium Chloride 500 ml @ 125 mls/hr Q8H IVPB Last administered on 03/12/19at 03:51; Admin Dose 125 MLS/HR; Start 03/11/19 at 20:00 Acetaminophen/ Hydrocodone Bitart ([place] (7.5-325)) 1 tab Q8 PRN PO PAIN Last administered on 03/12/19at 05:31; Admin Dose 1 TAB; Start 03/11/19 at 22:00 Zolpidem Tartrate (Ambien) 5 mg HS PRN PO INSOMNIA Last administered on 03/11/19at 22:00; Admin Dose 5 MG; Start 03/11/19 at 22:00 ALLYSSA HERNÁNDEZ Mar 12, 2019 11:06
--- NOTE | 2019-03-12 15:39 | PN ---
Date/Time of Note Date/Time of Note DATE: 03/12/19 TIME: 15:36 Assessment/Plan VTE Prophylaxis Risk score (from Ns)>0 risk: 5 SCD applied (from Ns): No SCD contraindicated: low risk/ambulating Pharmacological prophylaxis: LMWH Lines/Catheters IV Catheter Type (from Nrs): Peripheral IV Urinary Cath still in place: Yes Reason Cath still needed: urinary retention Assessment/Plan Hospital Course Assessment and plan 1. Acute hypoxic respiratory failure, stable continue supplemental oxygen 2. Chronic respiratory failure/obesity hypoventilation syndrome continue oxygen consider CPAP BiPAP etc. 3. Morbid obesity, weight management assistance as outpatient 4. Failure to thrive, stable continue PT at [facility]. Discharge plan soon 5. Hyperkalemia. Patient was on potassium supplements at [facility]. 6. Dm 7. RAUL 8. Htn 9. DL 10. Ac T/M Encephalopathy; improved 11. HCAP? S: awake, alert, oriented to yr/ month. no cp/ fever. occ cough; no hemoptysis O: vss PE no pallor/ jvd reg s1s2 no mrg ctab; no tachypnea bs+ nt nd; morbid obese/ no edema Result Diagram: 03/12/19 0617 03/12/19 0617 Results 24hrs Laboratory Tests Test 03/11/19 16:00 03/11/19 16:19 03/11/19 21:31 03/11/19 21:59 Blood Gas Blood arterial Specimen Source Arterial Blood 03/11/2019 5:24:04 Date Drawn PM Arterial Blood 7.368 pH (Temp corrected) Arterial Blood 63.5 H pCO2 (Temp correct) Arterial Blood 73.8 L pO2 (Temp corrected) Arterial Blood 35.7 H HCO3 Arterial Blood 8.3 H Base Excess Arterial Blood 94.7 L Oxygen Saturatio n Lambert Test ACCEPTAB Arterial Blood Right Radial Gas Puncture Site Arterial 1.0 Blood Carboxyhem oglobin Arterial Blood 0.2 Methemoglobin Blood Gas A-a O2 65.5 H Differential Oxyhemoglobin 93.6 Percent Blood Gas 37.0 Temperature Blood Gas 18.0 Respiration Rate Blood Gas Actual 22 Respiration Rate Blood Gas MASK - BIPAP Modality FiO2 30.0 Blood Gas 13 Pressure Support Blood Gas 18/5 IPAP/EPAP Ratio Blood Gas M.Brianda Notified Whom Blood Gas 03/11/2019 5:33:52 Notified Time PM Sodium Level 137 Potassium Level 5.6 H Chloride Level 95 L Carbon Dioxide 38 H Level Anion Gap 4 L Blood Urea 19 Nitrogen Creatinine 0.72 Est Glomerular > 60 Filtrat Rate mL/min Glucose Level 124 # Lactic Acid 1.7 1.5 Level Calcium Level 8.2 L Bedside Glucose 122 Test 03/12/19 00:13 03/12/19 03:52 03/12/19 05:00 03/12/19 06:17 Bedside Glucose 168 176 Blood Gas Blood arterial Specimen Source Arterial Blood 03/12/2019 5:40:38 Date Drawn AM Arterial Blood 7.327 L pH (Temp corrected) Arterial Blood 67.7 H pCO2 (Temp correct) Arterial Blood 83.7 pO2 (Temp corrected) Arterial Blood 34.7 H HCO3 Arterial Blood 6.5 H Base Excess Arterial Blood 95.6 Oxygen Saturatio n Lambert Test N/A Arterial Blood Left Radial Gas Puncture Site Arterial 1.0 Blood Carboxyhem oglobin Arterial Blood 0.3 Methemoglobin Blood Gas A-a O2 72.6 H Differential Oxyhemoglobin 94.4 Percent Blood Gas 37.0 Temperature Blood Gas NASAL CANNULA Modality FiO2 33.0 Blood Gas MR Notified Whom Blood Gas 03/12/2019 5:47:15 Notified Time AM White Blood 9.0 Count Red Blood Count 4.29 L Hemoglobin 12.0 L Hematocrit 42.0 Mean Corpuscular 97.9 Volume Mean Corpuscular 28.0 L Hemoglobin Mean Corpuscular 28.6 L Hemoglobin Loraine nt Red Cell 18.2 H Distribution Width Platelet Count 145 Mean Platelet 12.7 H Volume Immature 0.400 Granulocytes % Neutrophils % 92.0 H Lymphocytes % 5.0 L Monocytes % 2.1 Eosinophils % 0.1 Basophils % 0.4 Nucleated Red 0.0 Blood Cells % Immature 0.040 H Granulocytes # Neutrophils # 8.2 H Lymphocytes # 0.5 L Monocytes # 0.2 L Eosinophils # 0.0 Basophils # 0.0 Nucleated Red 0.0 Blood Cells # Sodium Level 137 Potassium Level 5.9 H Chloride Level 97 Carbon Dioxide 36 H Level Anion Gap 4 L Blood Urea 18 Nitrogen Creatinine 0.62 Est Glomerular > 60 Filtrat Rate mL/min Glucose Level 192 Lactic Acid 2.0 Level Calcium Level 8.0 L Phosphorus Level 3.9 Magnesium Level 2.1 Total Bilirubin 1.1 Direct Bilirubin 0.00 Indirect 1.1 Bilirubin Aspartate Amino 33 Transf (AST/SGOT ) Alanine 22 Aminotransferase (ALT/SGPT) Alkaline 128 H Phosphatase Creatine Kinase 27 Creatine Kinase 1.4 Index Creatinine 0.37 Kinase MB (Mass) Troponin I 0.024 Total Protein 7.4 # Albumin 3.3 Globulin 4.10 H Albumin/Globulin 0.80 Ratio Test 03/12/19 07:54 03/12/19 10:15 03/12/19 12:14 Bedside Glucose 165 140 204 Exam/Review of Systems Exam Vitals Vital Signs Date Temp Pulse Resp B/P (MAP) Pulse Ox O2 O2 Flow FiO2 Time Delivery Rate 03/12/19 98.2 71 18 134/63 93 15:17 (86) 03/12/19 Nasal 4.0 12:59 Cannula 03/12/19 50 05:13 Results Results 24hrs Laboratory Tests Test 03/11/19 16:00 03/11/19 16:19 03/11/19 21:31 03/11/19 21:59 Blood Gas Blood arterial Specimen Source Arterial Blood 03/11/2019 5:24:04 Date Drawn PM Arterial Blood 7.368 pH (Temp corrected) Arterial Blood 63.5 H pCO2 (Temp correct) Arterial Blood 73.8 L pO2 (Temp corrected) Arterial Blood 35.7 H HCO3 Arterial Blood 8.3 H Base Excess Arterial Blood 94.7 L Oxygen Saturatio n Lambert Test ACCEPTAB Arterial Blood Right Radial Gas Puncture Site Arterial 1.0 Blood Carboxyhem oglobin Arterial Blood 0.2 Methemoglobin Blood Gas A-a O2 65.5 H Differential Oxyhemoglobin 93.6 Percent Blood Gas 37.0 Temperature Blood Gas 18.0 Respiration Rate Blood Gas Actual 22 Respiration Rate Blood Gas MASK - BIPAP Modality FiO2 30.0 Blood Gas 13 Pressure Support Blood Gas 18/5 IPAP/EPAP Ratio Blood Gas M.D. Notified Whom Blood Gas 03/11/2019 5:33:52 Notified Time PM Sodium Level 137 Potassium Level 5.6 H Chloride Level 95 L Carbon Dioxide 38 H Level Anion Gap 4 L Blood Urea 19 Nitrogen Creatinine 0.72 Est Glomerular > 60 Filtrat Rate mL/min Glucose Level 124 # Lactic Acid 1.7 1.5 Level Calcium Level 8.2 L Bedside Glucose 122 Test 03/12/19 00:13 03/12/19 03:52 03/12/19 05:00 03/12/19 06:17 Bedside Glucose 168 176 Blood Gas Blood arterial Specimen Source Arterial Blood 03/12/2019 5:40:38 Date Drawn AM Arterial Blood 7.327 L pH (Temp corrected) Arterial Blood 67.7 H pCO2 (Temp correct) Arterial Blood 83.7 pO2 (Temp corrected) Arterial Blood 34.7 H HCO3 Arterial Blood 6.5 H Base Excess Arterial Blood 95.6 Oxygen Saturatio n Lambert Test N/A Arterial Blood Left Radial Gas Puncture Site Arterial 1.0 Blood Carboxyhem oglobin Arterial Blood 0.3 Methemoglobin Blood Gas A-a O2 72.6 H Differential Oxyhemoglobin 94.4 Percent Blood Gas 37.0 Temperature Blood Gas NASAL CANNULA Modality FiO2 33.0 Blood Gas MR Notified Whom Blood Gas 03/12/2019 5:47:15 Notified Time AM White Blood 9.0 Count Red Blood Count 4.29 L Hemoglobin 12.0 L Hematocrit 42.0 Mean Corpuscular 97.9 Volume Mean Corpuscular 28.0 L Hemoglobin Mean Corpuscular 28.6 L Hemoglobin Loraine nt Red Cell 18.2 H Distribution Width Platelet Count 145 Mean Platelet 12.7 H Volume Immature 0.400 Granulocytes % Neutrophils % 92.0 H Lymphocytes % 5.0 L Monocytes % 2.1 Eosinophils % 0.1 Basophils % 0.4 Nucleated Red 0.0 Blood Cells % Immature 0.040 H Granulocytes # Neutrophils # 8.2 H Lymphocytes # 0.5 L Monocytes # 0.2 L Eosinophils # 0.0 Basophils # 0.0 Nucleated Red 0.0 Blood Cells # Sodium Level 137 Potassium Level 5.9 H Chloride Level 97 Carbon Dioxide 36 H Level Anion Gap 4 L Blood Urea 18 Nitrogen Creatinine 0.62 Est Glomerular > 60 Filtrat Rate mL/min Glucose Level 192 Lactic Acid 2.0 Level Calcium Level 8.0 L Phosphorus Level 3.9 Magnesium Level 2.1 Total Bilirubin 1.1 Direct Bilirubin 0.00 Indirect 1.1 Bilirubin Aspartate Amino 33 Transf (AST/SGOT ) Alanine 22 Aminotransferase (ALT/SGPT) Alkaline 128 H Phosphatase Creatine Kinase 27 Creatine Kinase 1.4 Index Creatinine 0.37 Kinase MB (Mass) Troponin I 0.024 Total Protein 7.4 # Albumin 3.3 Globulin 4.10 H Albumin/Globulin 0.80 Ratio Test 03/12/19 07:54 03/12/19 10:15 03/12/19 12:14 Bedside Glucose 165 140 204 Medications Medication Current Medications IV Flush (NS 3 ml) 3 ml PER PROTOCOL IV ; Start 03/11/19 at 15:00 Enoxaparin Sodium (Lovenox) 40 mg DAILY SC Last administered on 03/12/19at 10:23; Admin Dose 40 MG; Start 03/12/19 at 09:00 Albuterol/ Ipratropium (Duoneb) 3 ml Q4H RESP THERAPY HHN Last administered on 03/12/19at 12:59; Admin Dose 3 ML; Start 03/11/19 at 17:00 Cefepime HCl 50 ml @ 100 mls/hr Q12 IVPB Last administered on 03/12/19 10:16; Admin Dose 100 MLS/HR; Start 03/11/19 at 21:00 Methylprednisolone Sodium Succinate (Solu-Medrol) 40 mg Q12 IV Last administered on 03/12/19at 10:16; Admin Dose 40 MG; Start 03/11/19 at 21:00 Hydralazine HCl (Apresoline) 10 mg Q6H PRN IV SBP>160; Start 03/11/19 at 15:30 Miscellaneous Information 1 ea NOTE XX ; Start 03/11/19 at 16:30 Glucose (Glutose) 15 gm Q15M PRN PO DECREASED GLUCOSE; Start 03/11/19 at 16:30 Glucose (Glutose) 22.5 gm Q15M PRN PO DECREASED GLUCOSE; Start 03/11/19 at 16:30 Dextrose (D50w Syringe) 25 ml Q15M PRN IV DECREASED GLUCOSE; Start 03/11/19 at 16:30 Dextrose (D50w Syringe) 50 ml Q15M PRN IV DECREASED GLUCOSE; Start 03/11/19 at 16:30 Glucagon (Glucagen) 1 mg Q15M PRN IM DECREASED GLUCOSE; Start 03/11/19 at 16:30 Glucose (Glutose) 15 gm Q15M PRN BUCCAL DECREASED GLUCOSE; Start 03/11/19 at 16:30 Insulin Aspart (Novolog Insulin Pen) (Adult SC Insulin - Mild Algorithm)... Q4H SC Last administered on 03/12/19at 12:17; Admin Dose 2 UNIT; Start 03/11/19 at 16:30 Acetaminophen/ Hydrocodone Bitart ([place] (7.5-325)) 1 tab Q8 PRN PO PAIN Last administered on 03/12/19at 14:22; Admin Dose 1 TAB; Start 03/11/19 at 22:00 Furosemide (Lasix) 40 mg BID DIURETICS IV ; Start 03/12/19 at 18:00 IMANI ZAFAR MD Mar 12, 2019 15:39
[2019-03-12] MEDS ORDERED: IPRATROPIUM (NEB) 0.5 MG/2.5 ML AMP HHN SCH (16:00)
[2019-03-12] MEDS: FUROSEMIDE 40 MG INJ IV SCH (17:29)
[2019-03-12] MEDS ORDERED: FAMOTIDINE 20 MG TAB PO SCH (21:00)
[2019-03-12] MEDS ORDERED: ZOLPIDEM 5 MG TAB PO PRN (23:00)
[2019-03-13] VITALS (7 sets, daily range): BP systolic 104–126; BP diastolic 59–73; PULSE 89–97; RESP 17–19
[2019-03-13] MEDS: ALBUTEROL/IPRATROPIUM (NEB) 3 ML AMP HHN SCH ×6 (01:09→20:07)
[2019-03-13] MEDS: Insulin NOVOLOG SS MILD Algorithm (NPO/TPN/ENTERAL FEEDS) SC SCH ×5 (02:15→17:55)
[2019-03-13] MEDS: FUROSEMIDE 40 MG INJ IV SCH ×2 (06:03→17:59)
--- NOTE | 2019-03-13 09:31 | DS ---
Date/Time of Note Date/Time of Note DATE: 03/13/19 TIME: 09:27 Discharge Summary Admission/Discharge Info Admit Date/Time Mar 11, 2019 at 13:22 Discharge Date/Time Patient Condition: Stable Consults MIRTA/ EDGAR Procedures Chest x-ray: IMPRESSION: Markedly low lung volumes with excessive rotation to the left, decreasing d iagnostic quality. Extensive interstitial opacities bilaterally with greater confluence in the basilar lungs. Findings can be secondary to severe pulmonary edema or airway inflammation. Retrocardiac opacity and blunting of the left costophrenic angle, consistent with a combination of left pleural effusion and atelectasis / consolidation. Aubrey Collins Physician Date Time Electronically vi Venous bilateral lower extremities No acute DVT Hx of Present Illness 58-year-old gentleman admitted with shortness of breath Hospital Course Hospitalist coverage/hospital course Admitted with acute hypoxic respiratory failure on chronic respiratory failure. Rule out for pneumonia. Chest x-ray/symptoms and consistent with an acute pneumonia. Patient denies any productive sputum or aspiration symptoms. Patient may have fluid overload but more likely obesity hypoventilation syndrome . Patient states he uses a concentrator but I believe he is not adherent to his CPAP therapy. Morbid obesity is and issue. Stable for dc to SNF. A/P 1. Acute hypoxic respiratory failure, stable continue o2. dc to snf 2. Chronic respiratory failure/obesity hypoventilation syndrome, cont CPAP BiPAP. 3. Morbid obesity, weight management assistance as outpatient 4. Failure to thrive, stable continue PT at SNF. Discharge 5. Hyperkalemia, resolved. Patient was on potassium supplements at SNF. 6. Dm; nonadherent to accuchecks 7. RAUL 8. Htn 9. DL 10. Ac T/M Encephalopathy; improved/ resolved. co2 retention 11. HCAP? not likely at this time S: 68 awake, alert, oriented to yr/ month. no cp/ fever. occ cough; no hemoptysis 03/13: no distress O: vss PE no pallor/ jvd reg s1s2 no mrg ctab; no tachypnea bs+ nt nd; morbid obese/ no edema Home Meds Reported Medications Nystatin* (Nystatin*) 15 Gm Cr, 1 APPLIC TOP BID, #1 TUB APPY TO PERINEAL AREA 03/11/19 Potassium Chloride* (K-Dur*) 10 Meq Tab.prt.sr, 10 MEQ PO DAILY, TAB 03/11/19 Temazepam* (Restoril*) 7.5 Mg Capsule, 7.5 MG PO HS PRN for INSOMNIA, CAP 03/11/19 Sennosides* (Senna Lax*) 8.6 Mg Tablet, 2 TAB PO DAILY PRN for CONSTIPATION, TAB 03/11/19 Sumatriptan Succinate* (Sumatriptan Succinate*) 50 Mg Tablet, 50 MG PO BID PRN for SEVERE MIGRAINE, TAB May repeat after 2 hours if needed; MAX 200 mg/24 hours 03/11/19 Dulaglutide (Trulicity) 1.5 Mg/0.5 Ml Pen.injctr, 1.5 MG SQ EVERY Friday03/11/19 Balsam Gary/[place] Oil (Venelex Ointment) 60 Gm Oint..gm., 1 APPLIC TOP DAILY PRN for PRN, #1 TUB APPLY TO RIGHT KNEE 03/11/19 Balsam Ana Lilia/[place] Oil (Venelex Ointment) 60 Gm Oint..gm., 1 APPLIC TOP DAILY PRN for PRN, #1 TUB APPLY TO LOWER LEG FOR DRY SCAB 03/11/19 Insulin Regular, Human (Humulin R U-500 Kwikpen) 500 Unit/1 Ml Insuln.pen, 0 SQ AC B 71-159 = 0 UNITS 160-200 = 2 UNITS 201-250 = 4 UNITS 251-300 = 8 UNITS 301-350 =16 UNITS 351-400 =20 UNITS OVER 400 GIVE 22 UNITS AND CALL MD CALL MD IF UNDER 70 03/11/19 Nystatin* (Nystatin*) 15 Gm Cr, 1 APPLIC TOP BID, #1 TUB APPLY TO ABDOMINAL FOLDS TOPICALLY 03/11/19 Hydrocodone/Acetaminophen ([place] 7.5-325 Tablet) 1 Each Tablet, 1 EACH PO Q6 PRN for PAIN, TAB STOP 03-20-19 03/11/19 Metformin Hcl* (Metformin Hcl*) 1,000 Mg Tablet, 1000 MG PO WITH BREAKFAST DINNE, #60 TAB 03/11/19 Meclizine Hcl* (Meclizine Hcl*) 25 Mg Tablet, 25 MG PO Q8H PRN for DIZZINESS, TAB 03/11/19 Furosemide* (Furosemide*) 20 Mg Tablet, 20 MG PO DAILY, #60 TAB 03/11/19 Insulin Glargine* (Lantus*) 100 Unit/Ml Soln, 35 UNIT SC BID, #1 VIAL 03/11/19 Lactobacillus Acidophilus* (Lactinex*) 1 Tab Chew, 1 TAB PO BID, TAB 03/11/19 Gabapentin* (Gabapentin*) 300 Mg Capsule, 300 MG PO QID, #60 CAP 03/11/19 Docusate Sodium* (Colace*) 100 Mg Capsule, 100 MG PO DAILY PRN for CONSTIPATION, #30 CAP 03/11/19 Acetaminophen* (Acetaminophen*) 500 MG Extra Strength Tablet, 500 MG PO Q4H PRN for PAIN AND OR ELEVATED TEMP, TAB MODERATE MIGRAINE 03/11/19 Primary Care Provider Care Physician No Primary Time spent on discharge: > 30 minutes Pending Labs Laboratory Tests Test 03/12/19 10:15 03/12/19 12:14 03/12/19 17:10 03/12/19 20:50 Bedside 140 204 210 169 Glucose mg/dL (70-220) mg/dL (70-220) mg/dL (70-220) mg/dL (70-220) Test 03/13/19 00:57 03/13/19 05:19 03/13/19 06:00 Bedside 142 288 Glucose mg/dL (70-220) mg/dL (70-220) White Blood 9.0 Count 10^3/ul (4.8-1 0.8) Red Blood 4.17 Count 10^6/ul (4.70- 6.10) Hemoglobin 11.9 g/dl (14.0-18. 0) Hematocrit 40.2 % (42.0-52.0) Mean 96.4 Corpuscular fl (82.0-101.0 Volume ) Mean 28.5 Corpuscular pg (29.0-33.0) Hemoglobin Mean 29.6 Corpuscular g/dl (32.0-37. Hemoglobin Conc 0) ent Red Cell 18.2 Distribution % (11.5-14.5) Width Platelet Count 138 10^3/UL (140-4 15) Mean Platelet 12.9 Volume fl (7.4-10.4) Immature 0.600 Granulocytes % % (0.001-0.429 ) Neutrophils % 78.0 % (39.0-77.0) Lymphocytes % 12.3 % (15.0-51.0) Monocytes % 7.7 % (0.0-11.0) Eosinophils % 0.8 % (0.0-7.0) Basophils % 0.6 % (0.0-2.0) Nucleated Red 0.0 Blood Cells % /100WBC (0.0-0 .0) Immature 0.050 Granulocytes # 10^3/ul (0.0-0 .031) Neutrophils # 7.0 10^3/ul (1.6-7 .5) Lymphocytes # 1.1 10^3/ul (0.8-2 .9) Monocytes # 0.7 10^3/ul (0.3-0 .9) Eosinophils # 0.1 10^3/ul (0.0-0 .5) Basophils # 0.1 10^3/ul (0.0-0 .1) Nucleated Red 0.0 Blood Cells # 10^3/ul (0.0-0 .0) Sodium Level 138 mmol/L (135-14 4) Potassium 4.5 Level mmol/L (3.5-5. 1) Chloride Level 98 mmol/L (97-110 ) Carbon Dioxide 35 Level mmol/L (21-31) Anion Gap 5 (5-13) Blood Urea 19 Nitrogen mg/dl (7-20) Creatinine 0.62 mg/dl (0.61-1. 24) Est Glomerular > 60 Filtrat mL/min (>60) Rate mL/min Glucose Level 111 mg/dl (70-220) Calcium Level 8.0 mg/dl (8.4-10. 2) Phosphorus 4.0 Level mg/dl (2.5-4.9 ) Magnesium 2.1 Level mg/dl (1.7-2.5 ) Total 0.8 Bilirubin mg/dl (0.2-1.3 ) Direct 0.00 Bilirubin mg/dl (0.00-0. 20) Indirect 0.8 Bilirubin mg/dl (0-1.1) Aspartate Amino 33 Transf (AST/SGO IU/L (15-46) T) Alanine 20 Aminotransferas IU/L (13-69) e (ALT/SGPT) Alkaline 117 Phosphatase IU/L (42-121) Total Protein 7.3 g/dl (6.1-8.1) Albumin 3.2 g/dl (3.3-4.9) Globulin 4.10 g/dl (1.3-3.2) Albumin/Globuli 0.78 n Ratio IMANI ZAFAR MD Mar 13, 2019 09:31
--- NOTE | 2019-03-13 09:32 | PDOCDIS ---
Discharge Instructions CONDITION [id number] Patient Condition: [id number] Stable HOME CARE INSTRUCTIONS: [id number] Diet Instructions: [id number] Rest between Activity Avoid heavy lifting Do not Drive FOLLOW UP/APPOINTMENTS Follow-up Plan appt primary & pulmonary 1-2wks OTHER ORDERS: Other Orders: cpap nightly & daytime when asleep SCHOOL/WORK RELEASE May return to School/Work on: Mar 13, 2019 IMANI ZAFAR MD Mar 13, 2019 09:32
[2019-03-13] MEDS ORDERED: ENOX40DI2 SC (09:33)
[2019-03-13] MEDS ORDERED: FAMO20TA18 PO (09:33)
[2019-03-13] MEDS ORDERED: DEXT37.54 BUCCAL (09:33)
[2019-03-13] MEDS: CEFEPIME 2GM/50 ML (PMX) 50 ML IVPB SCH (09:43)
[2019-03-13] MEDS: HYDROCODONE/APAP (7.5/325) TAB PO PRN ×2 (09:45→12:35)
[2019-03-13] MEDS: ENOXAPARIN 40 MG/0.4 ML SYG SC SCH (09:52)
--- NOTE | 2019-03-13 10:15 | CONS ---
Assessment/Plan Assessment/Plan Assessment/Plan (Daily) Assessment and recommendations; 1. Patient admitted with CHF exacerbation as well as severe hypercapnic respiratory failure due to underlying obesity/hypoventilation syndrome with interval improvement after being started on BiPAP. 2. Acute enteropathy due to hypercapnia with interval improvement as well. 3. Anemia and thrombocytopenia. 4. History of diabetes and hypertension. Continue current supportive care. Consider stopping antibiotics. Chest x-ray is pending. Consultation Date/Type/Reason Admit Date/Time Mar 11, 2019 at 13:22 Initial Consult Date 03/12/19 Type of Consult Pulmonary Pulmonary consult requested for evaluation of hypoxemic and hypercapnic respiratory failure. Patient is a 58-year-old gentleman who is a resident of residential transferred over to the hospital because of altered mental status. Upon evaluation patient was found to be severely hypercapnic and a chest x-ray was done which is showing pulmonary edema. Patient is a DNR status and therefore was not intubated and was put on BiPAP with significant improvement in hypercapnia as well as improvement in mental status. By the time I saw him in the room, patient was completely awake and alert. I did not appear to be in any distress. Past medical history; 1. Morbid obesity. 2. Likely underlying chronic type II respiratory failure. 3. Diabetes and hypertension. 4. Likely underlying sleep apnea. Medications; reviewed. Allergies; none. Family history; noncontributory. Occupational history; patient is on disability. Review of systems; denies any headache, chest pain, shortness of breath is improving. Denies any coughing, wheezing, sputum production. Any abdominal pain, nausea vomiting. Any dysphagia. Complains of chronic orthopnea. General exam; middle-aged male, morbidly obese, awake and alert. Currently in no distress. Date/Time of Note DATE: 03/13/19 TIME: 10:13 24 HR Interval Summary Free Text/Dictation Patient's condition is stable. Denies any significant shortness of breath, any chest congestion, coughing or wheezing. General exam; middle-aged male, morbidly obese, awake and alert. Currently in no distress. Exam/Review of Systems Exam Vitals Vital Signs Date Temp Pulse Resp B/P (MAP) Pulse Ox O2 O2 Flow FiO2 Time Delivery Rate 03/13/19 95 4.0 36 08:43 03/13/19 83 18 Nasal 08:43 Cannula 03/13/19 98.1 122/63 07:17 (82) Intake and Output 03/12/19 03/12/19 03/13/19 1515:00 23:00 07:00 IntakeIntake Total 700 ml OutputOutput Total 900 ml BalanceBalance -200 ml Exam H EENT exam; supple neck, JVD difficult to see because of short neck. Patient has fair dentition. No neck masses. Chest exam; diminished breath sounds throughout. S1-S2 audible, no murmurs. Regular rhythm. Abdomen exam; grossly protuberant. Organomegaly difficult to assess. Bowel sounds audible. Nontender. Extremity exam; trace edema lower extremities. CIA AGENT exam; no focal deficit. Results Result Diagram: 03/13/1951803/13/19518 Results 24hrs Laboratory Tests Test 03/12/19 10:15 03/12/19 12:14 03/12/19 17:10 03/12/19 20:50 Bedside Glucose 140 204 210 169 Test 03/13/19 00:57 03/13/19 05:19 03/13/19 06:00 Bedside Glucose 142 288 H White Blood Count 9.0 Red Blood Count 4.17 L Hemoglobin 11.9 L Hematocrit 40.2 L Mean Corpuscular Volume 96.4 Mean Corpuscular 28.5 L Hemoglobin Mean Corpuscular 29.6 L Hemoglobin Concent Red Cell Distribution 18.2 H Width Platelet Count 138 L Mean Platelet Volume 12.9 H Immature Granulocytes % 0.600 H Neutrophils % 78.0 H Segmented Neutrophils 78 H % (Manual) Band Neutrophils % 4 (Manual) Lymphocytes % 12.3 L Lymphocytes % (Manual) 13 L Reactive Lymphocytes 1 H % (Manual) Monocytes % 7.7 Monocytes % (Manual) 4 Eosinophils % 0.8 Basophils % 0.6 Nucleated Red Blood 0.0 Cells % Immature Granulocytes # 0.050 H Neutrophils # 7.0 Neutrophils # (Manual) 7.0 Band Neutrophils # 0.3 Lymphocytes (Manual) 1.1 Lymphocytes # 1.1 Reactive Lymphocytes # 0.0 Monocytes # 0.7 Monocytes # (Manual) 0.3 Eosinophils # 0.1 Basophils # 0.1 Nucleated Red Blood 0.0 Cells # Platelet Estimate NORMAL Giant Platelets 5 H Polychromasia 2+ Hypochromasia 1+ Anisocytosis 1+ Macrocytosis 1+ Sodium Level 138 Potassium Level 4.5 Chloride Level 98 Carbon Dioxide Level 35 H Anion Gap 5 Blood Urea Nitrogen 19 Creatinine 0.62 Est Glomerular Filtrat > 60 Rate mL/min Glucose Level 111 # Calcium Level 8.0 L Phosphorus Level 4.0 Magnesium Level 2.1 Total Bilirubin 0.8 Direct Bilirubin 0.00 Indirect Bilirubin 0.8 Aspartate Amino 33 Transf (AST/SGOT) Alanine 20 Aminotransferase (ALT/SG PT) Alkaline Phosphatase 117 Total Protein 7.3 Albumin 3.2 L Globulin 4.10 H Albumin/Globulin Ratio 0.78 Medications Medication Current Medications IV Flush (NS 3 ml) 3 ml PER PROTOCOL IV ; Start 03/11/19 at 15:00 Enoxaparin Sodium (Lovenox) 40 mg DAILY SC Last administered on 03/13/19at 09:52; Admin Dose 40 MG; Start 03/12/19 at 09:00 Albuterol/ Ipratropium (Duoneb) 3 ml Q4H RESP THERAPY HHN Last administered on 03/13/19at 08:42; Admin Dose 3 ML; Start 03/11/19 at 17:00 Cefepime HCl 50 ml @ 100 mls/hr Q12 IVPB Last administered on 03/13/19at 09:43; Admin Dose 100 MLS/HR; Start 03/11/19 at 21:00 Hydralazine HCl (Apresoline) 10 mg Q6H PRN IV SBP>160; Start 03/11/19 at 15:30 Miscellaneous Information 1 ea NOTE XX ; Start 03/11/19 at 16:30 Glucose (Glutose) 15 gm Q15M PRN PO DECREASED GLUCOSE; Start 03/11/19 at 16:30 Glucose (Glutose) 22.5 gm Q15M PRN PO DECREASED GLUCOSE; Start 03/11/19 at 16:30 Dextrose (D50w Syringe) 25 ml Q15M PRN IV DECREASED GLUCOSE; Start 03/11/19 at 16:30 Dextrose (D50w Syringe) 50 ml Q15M PRN IV DECREASED GLUCOSE; Start 03/11/19 at 16:30 Glucagon (Glucagen) 1 mg Q15M PRN IM DECREASED GLUCOSE; Start 03/11/19 at 16:30 Glucose (Glutose) 15 gm Q15M PRN BUCCAL DECREASED GLUCOSE; Start 03/11/19 at 16:30 Insulin Aspart (Novolog Insulin Pen) (Adult SC Insulin - Mild Algorithm)... Q4H SC Last administered on 03/13/19 06:20; Admin Dose 4 UNIT; Start 03/11/19 at 16:30 Acetaminophen/ Hydrocodone Bitart ([place] (7.5-325)) 1 tab Q8 PRN PO PAIN Last administered on 03/13/19 09:45; Admin Dose 1 TAB; Start 03/11/19 at 22:00 Furosemide (Lasix) 40 mg BID DIURETICS IV Last administered on 03/13/19 06:03; Admin Dose 40 MG; Start 03/12/19 at 18:00 Famotidine (Pepcid) 20 mg HS PO Last administered on 03/12/19 20:57; Admin Dose 20 MG; Start 03/12/19 at 21:00 Zolpidem Tartrate (Ambien) 5 mg HS PRN PO INSOMNIA Last administered on 03/12/19 23:30; Admin Dose 5 MG; Start 03/12/19 at 23:00 ALLYSSA HERNÁNDEZ Mar 13, 2019 10:15
== END 2019-03-13 20:47 | DRG 189 ==
LOC: E/R 11:23 → 6WM 13:22 → EDBEDREQSVC 15:44
PROVIDERS: ADMIT Internal Medicine; ATTEND Internal Medicine
PROC: 4A133R1 Monitoring of Arterial Saturation, Peripheral, Percutaneous Approach (ICD-10-PCS; principal; 2019-03-11)
PROC: 5A09457 Assistance with Respiratory Ventilation, 24-96 Consecutive Hours, Continuous Positive Airway Pressure (ICD-10-PCS; 2019-03-11)
DX: J96.21 Acute and chronic respiratory failure with hypoxia (principal); G92 Toxic encephalopathy; E66.2 Morbid (severe) obesity with alveolar hypoventilation; J44.0 Chronic obstructive pulmonary disease with (acute) lower respiratory infection; Z68.44 Body mass index [BMI] 60.0-69.9, adult; J96.22 Acute and chronic respiratory failure with hypercapnia; M06.9 Rheumatoid arthritis, unspecified; Z66 Do not resuscitate; E11.9 Type 2 diabetes mellitus without complications; E87.5 Hyperkalemia; D64.9 Anemia, unspecified; R62.7 Adult failure to thrive; E78.5 Hyperlipidemia, unspecified; I11.0 Hypertensive heart disease with heart failure; I50.9 Heart failure, unspecified; D69.6 Thrombocytopenia, unspecified; Z79.4 Long term (current) use of insulin
CPT/HCPCS: 36415; 36600; 71045; 80048; 80053; 80061; 81001; 82150; 82550; 82553; 82803; 82962; 83605; 83690; 83735; 83880; 84100; 84145; 84439; 84443; 84484; 85025; 85610; 85730; 86850; 86900; 86901; 87081; 87086; 92610; 93005; 93970; 94640; 94644; 94660; 94664; 96374; 96375; J0360; J0692; J1650; J1815; J1940; J2920; J3370; J7040